=== PATIENT | male | born 1965 | race American Indian/Alaskan Native ===

== ENCOUNTER 2017-05-07 16:50 | Inpatient (IN) | payer SELFPAY ==
[2017-05-07] MEDS ORDERED: HEPARIN 10,000 UNITS/10 ML ONE (17:06)
[2017-05-07] MEDS ORDERED: HEPARIN/ 0.45% NACL-25,000 UNIT/500 ML 25,000 UNIT/500 ML BAG ONE (17:06)
[2017-05-07] MEDS ORDERED: NACL 0.9% 1000 ML 1,000 ML IV ONE (17:08)
[2017-05-07] MEDS ORDERED: BABY ASPIRIN PO ONE (17:08)
[2017-05-07] MEDS ORDERED: HEPARIN IV ONE (17:08)
[2017-05-07] MEDS ORDERED: MORPHINE IV ONE ×2 (17:11→17:21)
--- NOTE | 2017-05-07 17:19 | Emergency Department Report ---
ED General Adult HPI - General Chief complaint: Chest Pain Stated complaint: CHEST PAIN Time Seen by Provider: 05/07/17 17:08 Source: patient, family, RN notes reviewed Mode of arrival: Ambulatory Limitations: No Limitations - History of Present Illness Initial comments: This is a 51-year-old male. He is previously unknown to me. The patient presents to the ER with chest pain. The chest pain is central and substernal. It is associated with nausea and diaphoresis. Upon arrival to the ER, the patient's initial EKG demonstrated T wave inversions in 1 and aVL, with nonspecific abnormalities in the inferior leads. The EKG was transmitted to the painting manager, Dr. Garzon. A repeat EKG was obtained shortly thereafter, demonstrating an inferior wall STEMI. The patient indicates he did not take cocaine prior to arrival, denies hematemesis and bright red blood per rectum, denies leg pain and leg swelling, as well as recent trips greater than 4 hours. The painting manager, Dr. Garzon accepted the patient to the [facility] for emergent STEMI revascularization. Aspirin, multiple doses of morphine, heparin were given. At the cardiology team's request, Plavix was held. The case was presents to the Hospital physician, Dr. Gunn, who accepted the patient to his service. The case was presented to the critical care physician, Dr. Hansen, who agreed with placement into the intensive care unit status post STEMI management., -: Gradual Location: chest Quality: aching Consistency: constant Improves with: none Worsens with: none Associated Symptoms: chest pain, diaphoresis, loss of appetite, malaise, weakness - Related Data Home Medications Medication Instructions Recorded Confirmed Last Taken Unobtainable 05/07/17 05/07/17 Unknown Allergies Allergy/AdvReac Type Severity Reaction Status Date / Time No Known Allergies Allergy Unverified 05/07/17 17:05 ED Review of Systems ROS: Stated complaint: CHEST PAIN Other details as noted in HPI Constitutional: diaphoresis, malaise, weakness. denies: fever Eyes: denies: vision change ENT: denies: epistaxis Respiratory: shortness of breath Cardiovascular: chest pain Gastrointestinal: denies: vomiting, hematemesis Genitourinary: as per HPI Musculoskeletal: denies: arthralgia, myalgia Skin: denies: lesions Neurological: weakness Psychiatric: anxiety ED Past Medical Hx - Past Medical History Previous Medical History?: No - Surgical History Past Surgical History?: No - Social History Smoking Status: Current Some Day Smoker Substance Use Type: Alcohol, Marijuana - Medications Home Medications: Home Medications Medication Instructions Recorded Confirmed Last Taken Type Unobtainable 05/07/17 05/07/17 Unknown History ED Physical Exam - General Limitations: No Limitations General appearance: alert, in distress - Head Head exam: Present: atraumatic, normocephalic - Eye Eye exam: Present: normal appearance - ENT ENT exam: Present: normal exam, normal orophraynx, mucous membranes moist, normal external ear exam - Neck Neck exam: Present: normal inspection, full ROM. Absent: tenderness, meningismus - Respiratory Respiratory exam: Present: normal lung sounds bilaterally. Absent: respiratory distress, wheezes, rales, rhonchi, stridor, chest wall tenderness - Cardiovascular Cardiovascular Exam: Present: normal rhythm, bradycardia, normal heart sounds. Absent: systolic murmur, diastolic murmur, rubs, gallop - GI/Abdominal GI/Abdominal exam: Present: soft, normal bowel sounds. Absent: distended, tenderness, guarding, rebound, rigid, pulsatile mass - Rectal Rectal exam: Present: deferred - Extremities Exam Extremities exam: Present: normal inspection, full ROM, normal capillary refill , other (2+ pulses are noted in 4 extremities). Absent: pedal edema, joint swelling, calf tenderness - Back Exam Back exam: Present: normal inspection, full ROM. Absent: tenderness, CVA tenderness (R), CVA tenderness (L), muscle spasm, paraspinal tenderness, vertebral tenderness - Neurological Exam Neurological exam: Present: alert, oriented X3, other (Extraocular movements intact. Tongue midline. No facial droop. Facial sensation intact to light touch in the V1, V2, V3 distribution bilaterally. 5 and 5 strength in 4 extremities.. Sensation is intact to light touch in 4 extremities.). Absent: motor sensory deficit - Psychiatric Psychiatric exam: Present: anxious - Skin Skin exam: Present: warm, dry, intact, normal color. Absent: rash ED Course Vital Signs 05/07/17 05/07/17 17:00 17:21 Temperature 98.3 F Pulse Rate 73 74 Respiratory 17 18 Rate Blood Pressure 132/92 Blood Pressure 138/90 150/100 [Right] O2 Sat by Pulse 98 100 Oximetry ED Medical Decision Making - Lab Data Result diagrams: 05/07/17 17:00 05/07/17 17:00 Vital Signs 05/07/17 05/07/17 17:00 17:21 Temperature 98.3 F Pulse Rate 73 74 Respiratory 17 18 Rate Blood Pressure 132/92 Blood Pressure 138/90 150/100 [Right] O2 Sat by Pulse 98 100 Oximetry Lab Results 05/07/17 05/07/17 05/07/17 Range/Units 17:00 17:00 17:10 WBC 5.9 (4.5-11.0) K/mm3 RBC 5.37 H (3.65-5.03) M/mm3 Hgb 13.3 (11.8-15.2) gm/dl Hct 41.3 (35.5-45.6) % MCV 77 L (84-94) fl MCH 25 L (28-32) pg MCHC 32 (32-34) % RDW 15.5 H (13.2-15.2) % Plt Count 218 (140-440) K/mm3 Add Manual Diff Complete Total Counted 100 Seg Neutrophils % Assembly Lead Person Seg Neuts % (Manual) 33.0 L (40.0-70.0) % Band Neutrophils % 0 % Lymphocytes % (Manual) 53.0 H (13.4-35.0) % Reactive Lymphs % (Man) 1.0 % Monocytes % (Manual) 7.0 (0.0-7.3) % Eosinophils % (Manual) 6.0 H (0.0-4.3) % Basophils % (Manual) 0 (0.0-1.8) % Metamyelocytes % 0 % Myelocytes % 0 % Promyelocytes % 0 % Blast Cells % 0 % Nucleated RBC % Not Reportable Seg Neutrophils # Man 1.9 (1.8-7.7) K/mm3 Band Neutrophils # 0.0 K/mm3 Lymphocytes # (Manual) 3.1 (1.2-5.4) K/mm3 Abs React Lymphs (Man) 0.1 K/mm3 Monocytes # (Manual) 0.4 (0.0-0.8) K/mm3 Eosinophils # (Manual) 0.4 (0.0-0.4) K/mm3 Basophils # (Manual) 0.0 (0.0-0.1) K/mm3 Metamyelocytes # 0.0 K/mm3 Myelocytes # 0.0 K/mm3 Promyelocytes # 0.0 K/mm3 Blast Cells # 0.0 K/mm3 WBC Morphology Not Reportable Hypersegmented Neuts Not Reportable Hyposegmented Neuts Not Reportable Hypogranular Neuts Not Reportable Smudge Cells Not Reportable Toxic Granulation Not Reportable Toxic Vacuolation Not Reportable Dohle Bodies Not Reportable Pelger-Huet Anomaly Not Reportable Michael Rods Not Reportable Platelet Estimate Consistent w auto Clumped Platelets Not Reportable Plt Clumps, EDTA Not Reportable Large Platelets Not Reportable Giant Platelets Not Reportable Platelet Satelliting Not Reportable Plt Morphology Comment Not Reportable RBC Morphology Normal Dimorphic RBCs Not Reportable Polychromasia Not Reportable Hypochromasia Not Reportable Poikilocytosis Not Reportable Anisocytosis Not Reportable Microcytosis Not Reportable Macrocytosis Not Reportable Spherocytes Not Reportable Pappenheimer Bodies Not Reportable Sickle Cells Not Reportable Target Cells Not Reportable Tear Drop Cells Not Reportable Ovalocytes Not Reportable Helmet Cells Not Reportable Garcia-Chamizal Bodies Not Reportable [place]wood Rings Not Reportable Evaristo Cells Not Reportable Bite Cells Not Reportable Crenated Cell Not Reportable Elliptocytes Not Reportable Acanthocytes (Spur) Not Reportable Rouleaux Not Reportable Hemoglobin C Crystals Not Reportable Schistocytes Not Reportable Malaria parasites Not Reportable Timur Bodies Not Reportable Hem Pathologist Commnt No Sodium 141 (137-145) mmol/L Potassium 3.5 L (3.6-5.0) mmol/L Chloride 101.4 (98-107) mmol/L Carbon Dioxide 25 (22-30) mmol/L Anion Gap 18 mmol/L BUN 12 (9-20) mg/dL Creatinine 0.9 (0.8-1.5) mg/dL Estimated GFR > 60 ml/min BUN/Creatinine Ratio 13.33 % Glucose 218 H (75-100) mg/dL Calcium 8.9 (8.4-10.2) mg/dL Total Creatine Kinase 102 (55-170) units/L CK-MB (CK-2) 2.4 (0.0-4.0) ng/mL CK-MB (CK-2) Rel Index 2.3 (0-4) Troponin T < 0.010 (0.00-0.029) ng/mL Blood Type B POSITIVE Antibody Screen TNR LUCÍA Antibody Screen Negative - EKG Data -: EKG Interpreted by Me Rate: bradycardia (her) - EKG Data When compared to previous EKG there are: previous EKG unavailable Interpretation: normal EKG 05/07/17 18:42 sinus 70 bpm, inferior wall stemi, normal intervals - Radiology Data Radiology results: image reviewed interpreted by me: x-ray the chest is portable, rotated, no acute disease Critical care attestation.: If time is entered above; I have spent that time in minutes in the direct care of this critically ill patient, excluding procedure time. ED Disposition Clinical Impression: ST elevation myocardial infarction (STEMI) of inferior wall Disposition: [id number] OP ADMIT IP TO THIS HOSP Is pt being admited?: Yes Condition: Good
[2017-05-07 17:20] LABS: Hematocrit 41.3 % (35.5-45.6); Hemoglobin 13.3 gm/dl (11.8-15.2); Mean Corpuscular HGB Conc 32 % (32-34); Mean Corpuscular Volume 77 fl (84-94); Platelet Count 218 K/mm3 (140-440); Red Blood Count 5.37 M/mm3 (3.65-5.03); Red Cell Distribution Width 15.5 % (13.2-15.2); White Blood Count 5.9 K/mm3 (4.5-11.0)
[2017-05-07] MEDS ORDERED: CALAN ONE (17:28)
[2017-05-07] MEDS ORDERED: HEPARIN/NS 5000 UNIT/500ML(CATH LAB) 1,000 ML IR ONE (17:28)
[2017-05-07] MEDS ORDERED: XYLOCAINE 2% INFILTRATI ONE (17:28)
[2017-05-07] MEDS ORDERED: NITROGLYCERIN SYRINGE 3 ML ONE (17:29)
[2017-05-07] MEDS ORDERED: SUBLIMAZE ONE (17:29)
[2017-05-07 17:34] LABS: Mean Corpuscular Hemoglobin 25 pg (28-32)
[2017-05-07 17:37] LABS: Creatine Kinase MB 2.4 ng/mL (0.0-4.0)
[2017-05-07 17:38] LABS: Anion Gap 18 mmol/L; BUN/Creatinine Ratio 13.33; Blood Urea Nitrogen 12 mg/dL (9-20); Calcium 8.9 mg/dL (8.4-10.2); Carbon Dioxide 25 mmol/L (22-30); Chloride 101.4 mmol/L (98-107); Creatine Kinase 102 units/L (55-170); Glucose 218 mg/dL (75-100); Potassium 3.5 mmol/L (3.6-5.0); Sodium 141 mmol/L (137-145)
[2017-05-07] MEDS: HEPARIN 10,000 UNITS/10 ML ONE ×2 (17:56→18:12)
[2017-05-07] MEDS ORDERED: HEPARIN/ 0.45% NACL-25,000 UNIT/500 ML 25,000 UNIT/500 ML BAG IV SCH (18:00)
[2017-05-07] MEDS ORDERED: ATROPINE 0.1% (CARDIAC) ONE (18:01)
[2017-05-07] MEDS ORDERED: VERSED ONE (18:03)
[2017-05-07] MEDS ORDERED: BENADRYL ONE (18:05)
[2017-05-07] MEDS ORDERED: PLAVIX ONE (18:10)
[2017-05-07] MEDS ORDERED: ALUM-MAG HYDROX-SIMETH 200-200-20MG/5ML ONE (18:10)
[2017-05-07 18:39] LABS: Basophils % (Manual) 0 % (0.0-1.8); Blastocytes % (Manual) 0 %
--- NOTE | 2017-05-07 18:39 | Consultation ---
History of Present Illness Consult date: 05/07/17 Consult reason: chest pain (STEMI of the inferior wall), other History of present illness: 51-year-old man with a history of hypertension and diabetes, who is visiting from [place]. He states that he is not on any medications or his hypertension and diabetes, and does not follow regularly with Drs. Co- morbidities include chronic tobacco use. Denies any prior cardiac history. He presented to the emergency room with a history of substernal chest pain. Initial EKG in the emergency room was largely benign with nonspecific ST and T- wave changes, but a follow-up EKG with recurrent chest pain was consistent with an acute inferior wall ST elevation myocardial infarction. Cardiac chemistry lab instructor was activated, he was taken emergently to the cardiac catheterization where was found complete occlusion of the proximal right coronary artery. Primary angioplasty was performed, with reestablishment of KAYLEEN-3 flow. A 3.0 x 18 mm drug-eluting stent was deployed with an excellent angiographic result of the treated site. In addition to the primary lesion, the patient had non-obstructive, diffuse three-vessel atherosclerosis. He is admitted to the CCU for post LA stabilization. Past History Past Medical History: diabetes, hypertension, other (tobacco abuse) Social history: smoking Medications and Allergies Allergies Allergy/AdvReac Type Severity Reaction Status Date / Time No Known Allergies Allergy Unverified 05/07/17 17:05 Home Medications Medication Instructions Recorded Confirmed Last Taken Type Unobtainable 05/07/17 05/07/17 Unknown History Active Meds: Active Medications Heparin Sodium/Sodium Chloride (Heparin/ 0.45% Nacl-25,000 Unit/500 Ml) 25,000 unit in 500 mls @ 20 mls/hr IV TITRATE MARIA ISABEL; 1,000 UNITS/HR PRN Reason: Protocol Last Admin: 05/07/17 17:07 Dose: 1,000 units/hr, 20 mls/hr Sodium Chloride (Nacl 0.9% 1000 Ml) 1,000 mls @ 42 mls/hr IV ONCE ONE Stop: 05/08/17 16:56 Last Admin: 05/07/17 17:11 Dose: 42 mls/hr Review of Systems Cardiovascular: chest pain, shortness of breath, no orthopnea, no palpitations, no rapid/irregular heart beat, no edema, no syncope, no lightheadedness Physical Examination Vital Signs Temp Pulse Resp BP Pulse Ox 97.7 F 59 L 18 138/90 97 05/07/17 17:00 05/07/17 17:00 05/07/17 17:00 05/07/17 17:00 05/07/17 17:00 General appearance: no acute distress HEENT: Positive: PERRL Neck: Positive: neck supple Cardiac: Positive: Reg Rate and Rhythm Lungs: Positive: Decreased Breath Sounds Neuro: Positive: Grossly Intact Abdomen: Positive: Soft Male genitourinary: Positive: deferred Skin: Positive: Clear Extremities: Absent: edema Results 05/07/17 17:00 05/07/17 17:00 Cardiac Enzymes 05/07/17 Range/Units 17:00 CK-MB (CK-2) 2.4 (0.0-4.0) ng/mL CBC 05/07/17 Range/Units 17:00 WBC 5.9 (4.5-11.0) K/mm3 RBC 5.37 H (3.65-5.03) M/mm3 Hgb 13.3 (11.8-15.2) gm/dl Hct 41.3 (35.5-45.6) % Plt Count 218 (140-440) K/mm3 Comprehensive Metabolic Panel 05/07/17 Range/Units 17:00 Sodium 141 (137-145) mmol/L Potassium 3.5 L (3.6-5.0) mmol/L Chloride 101.4 (98-107) mmol/L Carbon Dioxide 25 (22-30) mmol/L BUN 12 (9-20) mg/dL Creatinine 0.9 (0.8-1.5) mg/dL Glucose 218 H (75-100) mg/dL Calcium 8.9 (8.4-10.2) mg/dL EKG interpretations - Telemetry EKG Rhythm: Sinus Rhythm (acute inferior wall ST elevation myocardial infarction ) Assessment and Plan - Patient Problems (1) ST elevation myocardial infarction (STEMI) of inferior wall Current Visit: Yes Status: Acute Plan to address problem: Patient presented with acute STEMI of the inferior wall. He has undergone emergency cardiac catheterization with successful primary angioplasty of completely occluded proximal right coronary artery. Successful drug eluting stent placement with rest outpatient of KAYLEEN-3 flow.
[2017-05-07 18:40] LABS: Diff Status Complete; Platelet Estimate Consistent w Auto; RBC Morphology Normal
[2017-05-07] MEDS ORDERED: ALUM-MAG HYDROX-SIMETH 200-200-20MG/5ML PO PRN (18:42)
[2017-05-07] MEDS ORDERED: DULCOLAX PR PRN (18:42)
[2017-05-07] MEDS ORDERED: MILK OF MAGNESIA PO PRN (18:42)
--- NOTE | 2017-05-07 18:42 | Admit Criteria Form ---
Admission Criteria Documentation: MYOCARDIAL INFARCTION Clinical Indications for Admission to Inpatient Care (Place 'X' for any and all applicable criteria): Admission is indicated for 1 or more of the following (1)(2)(3)(4): [X ]I. Acute RI [ ]II. Contraindications and/or Inappropriate clinical situations for Observational Care in patients with Myocardial Infarction, when ANY ONE of the following is required: [ ]a) Patient with High risk of cardiac embolism (e.g, patients with previous cardiac embolism, LVEF < 40%, age >75 and patients with prosthetic valve) 18 [ ]b) Patient with Moderate risk including DM patient, CAD and patient aged 65-75 18 [ ]c) Patient with any change in cardiac biomarker especially troponin should be managed as high risk in an inpatient setting 19 [ ]d) Physician judgement irrespective of ECG and other diagnostic findings 20 [ ]III.General contraindications and/or Inappropriate clinical situations for Observational Care in patients with Myocardial Infarction, when ANY ONE of the following is required: [ ]a) Prediction of prolongation of LOS based on ANY ONE of the following may be considered as a contraindication for observational care 2, 3, 4, 5, 6, 7, 8, 9, 10, 11 [ ]i) Age > 65 yrs. [ ]ii) Patient arriving by ambulance [ ]iii) Patient with high acuity [ ]iv) Patient requiring vital sign monitoring [ ]v) Patient on IV medication [ ]b) Systolic blood pressures greater than or equal to 180mmHg 3,12 [ ]c) Patient with altered mental status including delirium and other alteration of consciousness, (3) [ ]d) Patient whose discharge disposition will be to a detention home or rehabilitation home should not be managed in Emergency Department Observation Unit. CMS rule requires 3 days hospital stay before such placement. 3,13 [ ]e) Patient with failure to thrive due to broad array of etiologies 3 ,16,17 [ ]f) Inability to ambulate 3,14 Extended stay beyond goal length of stay may be needed for (1)(18)(20)(24)(25): [ ]a) Hemodynamic instability, persisting symptoms after intensive medical management, or recurring severe, prolonged symptoms [ ]b) Intravascular procedural complications such as acute vessel closure, stent thrombosis, stent malposition, or vessel dissection (26)(27)(28) [ ]c) Extravascular procedural complications such as retroperitoneal hematoma , pericardial effusion, or cardiac tamponade [ ]d) Entry site complications causing bleeding, hematoma or distal ischemia and requiring ongoing monitoring, surgical repair or surgical thrombectomy. Dangerous arrhythmia [ ]e) Complicated percutaneous coronary intervention (e.g., unsuccessful percutaneous coronary intervention or percutaneous coronary intervention of non- [place] band vessel) [ ]f) Urgent or emergent surgery for complications of RI (e.g., ventricular rupture, valvular insufficiency) [ ]g) Surgical revascularization via coronary artery bypass graft [ ]h) Heart failure (e.g., pulmonary edema) [ ]i) Unstable pulmonary comorbidities, including COPD or pneumonia (31) [ ]j) Acute renal failure The original [employer] content created by [employer] has been revised. The portions of the content which have been revised are identified through the use of italic text or in bold, and [employer] has neither reviewed nor approved the modified material. All other unmodified content is copyright [email or web address] Please see references footnoted in the original [facility] edition 2016 Admission Criteria Met: Yes
--- NOTE | 2017-05-07 18:46 | History and Physical Report ---
History of Present Illness Chief complaint: chest pain History of present illness: 51 YO Male with DM, HTN, Nicotine Dependence presents to ED for evaluation. Pt states that he has been experiencing chest pain for the past 1 day with worsening symptoms over the past 3 hours. Pain is 4/6/10, substernal, nonradiating, not worsened with exertion or relieved with rest. Pain is associated with nausea and diaphoresis. Upon arrival to the ER, the patient's initial EKG demonstrated STEMI, Pt taken urgently to laboratory phlebotomist as per cardiology team and subsequently admitted to ICU. Past History Past Medical History: diabetes, hypertension, other (tobacco abuse) Past Surgical History: No surgical history, Other (reviewed) Social history: single, smoking. denies: alcohol abuse, prescription drug abuse , IV drug use Family history: diabetes, hypertension Medications and Allergies Allergies Allergy/AdvReac Type Severity Reaction Status Date / Time No Known Allergies Allergy Unverified 05/07/17 17:05 Home Medications Medication Instructions Recorded Confirmed Last Taken Type Unobtainable 05/07/17 05/07/17 Unknown History Active Meds: Active Medications Aspirin (Ecotrin) 325 mg PO QDAY [facility] Atorvastatin Calcium (Lipitor) 20 mg PO QHS [facility] Clopidogrel Bisulfate (Plavix) 75 mg PO QDAY [facility] Heparin Sodium/Sodium Chloride (Heparin/ 0.45% Nacl-25,000 Unit/500 Ml) 25,000 unit in 500 mls @ 20 mls/hr IV TITRATE MARIA ISABEL; 1,000 UNITS/HR PRN Reason: Protocol Last Admin: 05/07/17 17:07 Dose: 1,000 units/hr, 20 mls/hr Sodium Chloride (Nacl 0.9% 1000 Ml) 1,000 mls @ 42 mls/hr IV ONCE ONE Stop: 05/08/17 16:56 Last Admin: 05/07/17 17:11 Dose: 42 mls/hr Sodium Chloride (Nacl 0.9% 1000 Ml) 1,000 mls @ 100 mls/hr IV DIRECT [facility] Stop: 05/08/17 06:59 Lisinopril (Zestril) 2.5 mg PO QDAY [facility] Metoprolol Tartrate (Lopressor) 50 mg PO BID [facility] Nitroglycerin (Nitro Dur) 0.4 mg TD DAILY@0600 [facility] Review of Systems All systems: negative Cardiovascular: chest pain Exam - Constitutional Vitals: Temp Pulse Resp BP Pulse Ox 98.3 F 74 18 150/100 100 05/07/17 17:00 05/07/17 17:21 05/07/17 17:21 05/07/17 17:21 05/07/17 17:21 General appearance: Present: mild distress - EENT Eyes: Present: PERRL ENT: hearing intact, clear oral mucosa - Neck Neck: Present: supple, normal ROM - Respiratory Respiratory effort: normal Respiratory: bilateral: CTA - Cardiovascular Heart Sounds: Present: S1 & S2. Absent: rub, click - Extremities Extremities: pulses symmetrical, No edema Peripheral Pulses: within normal limits - Abdominal General gastrointestinal: Present: soft, non-tender, non-distended, normal bowel sounds Male genitourinary: Present: normal - Integumentary Integumentary: Present: clear, warm, dry - Musculoskeletal Musculoskeletal: gait normal, strength equal bilaterally - Psychiatric Psychiatric: appropriate mood/affect, intact judgment & insight - Neurologic Neurologic: CNII-XII intact, moves all extremities Results - Labs CBC & Chem 7: 05/07/17 17:00 05/07/17 17:00 Labs: Abnormal lab results 05/07/17 05/07/17 Range/Units 17:00 17:00 RBC 5.37 H (3.65-5.03) M/mm3 MCV 77 L (84-94) fl MCH 25 L (28-32) pg RDW 15.5 H (13.2-15.2) % Seg Neuts % (Manual) 33.0 L (40.0-70.0) % Lymphocytes % (Manual) 53.0 H (13.4-35.0) % Eosinophils % (Manual) 6.0 H (0.0-4.3) % Potassium 3.5 L (3.6-5.0) mmol/L Glucose 218 H (75-100) mg/dL Assessment and Plan - Patient Problems (1) ST elevation myocardial infarction (STEMI) of inferior wall Current Visit: Yes Status: Acute Plan to address problem: Cardiology team consulted: telemetry, supportive care, The high probability of a clinically significant, sudden or life threatening deterioration of the [cardiac, pulmonary, renal] system(s) required my full and direct attention, intervention and personal management. The aggregate critical care time was [65] minutes. This time is in addition to time spent performing reported procedures but includes the following: [x] Data Review and interpretation [x] Patient assessment and monitoring of vital signs [x] Documentation [x] Medication orders and management (2) HTN (hypertension) Current Visit: Yes Status: Acute Qualifiers: Hypertension type: H Plan to address problem: monitor bp q shfit, resume home medication, as per cardiology team recommendation (3) Diabetes Current Visit: Yes Status: Acute Qualifiers: Diabetes mellitus type: D Diabetes mellitus complication status: D Diabetes mellitus complication detail: D Diabetic retinopathy severity: D Proliferative retinopathy type: P Diabetes mellitus macular edema: D Diabetes mellitus skilled nursing insulin use: D Laterality: L Chronic kidney disease stage: C Plan to address problem: ADA diet, insulin, accu check (4) Nicotine dependence Current Visit: Yes Status: Acute Qualifiers: Nicotine product type: N Substance use status: S Plan to address problem: supportive care, no nicotine patch at this time, supportive care. (5) DVT prophylaxis Current Visit: Yes Status: Acute
[2017-05-07 18:47] LABS: INR 1.06 (0.87-1.13)
[2017-05-07 18:48] LABS: Partial Thromboplastin Time 27.3 Sec. (24.2-36.6)
--- NOTE | 2017-05-07 18:55 | Operative Report ---
Operative Report Operative Report: Cardiac catheterization and coronary angioplasty report Date of procedure 05/07/2017 Procedures performed: Left heart catheterization and coronary angiography Coronary angioplasty and stent implantation Patient's a 51-year-old man who presented to the emergency room with chest pain and EKG consistent with an acute inferior wall ST elevation myocardial infarction. Emergency cardiac catheterization was recommended. Procedure: Patient was prepped and draped in a sterile fashion under emergency protocol. Right femoral artery was entered using the Seldinger technique followed by placement of the 6 Wolof sheath. Left coronary angiography was performed using a #4 left Kris catheter. We then exchanged for a #4 right Kris guiding catheter, which was used for right coronary angiography. The angiograms were reviewed. Coronary angiography: Left main coronary artery was free of significant disease. Left anterior descending artery and its diagonal branches contain diffuse mild to moderate atherosclerosis. The circumflex artery and its obtuse marginal branches contain diffuse moderate atherosclerosis. The right coronary artery was dominant. This vessel was completely occluded in its proximal segment. This was the infarct related lesion. Coronary angioplasty: A 0.014 inch company pilot 50 guidewire was then introduced, successfully penetrated the completely occluded vessel. Following my placement, balloon angioplasty was performed using a 3.0 mm balloon catheter. Following this, we reestablished KAYLEEN-3 flow. The 3 flow revealed a large, dominant right coronary system. There was a significant, ulcerated residual lesion with intracoronary thrombus, which prompted deployment of a 3.0 x 18 mm drug-eluting stent, covering the entire lesionaL segment. Following stenting, there was an excellent angiographic result of the primary site, 0 residual stenosis and KAYLEEN 3 flow was maintained on the vessel. We noted that similar to the left coronary vessels, there was diffuse mild to moderate atherosclerosis of the rest of the right coronary system. Specifically, there was a 40-50% stenosis of the midsegment, adjacent to the acute margin. This secondary nonobstructive lesion was not treated. The procedure was well treated by the patient and her no complications. Catheter was removed, sheath removed and hemostasis achieved using an Angio- Seal device. He was returned to the post procedure unit in stable condition. Conclusion: Acute ST elevation myocardial infarction of the inferior wall. Emergency left heart catheterization. 100% occlusion of the proximal right coronary artery. Successful primary angioplasty and stenting of the right coronary artery, restoring KAYLEEN-3 flow, with an excellent angiographic result of the primary site. Diffuse three-vessel coronary atherosclerosis, recommend aggressive risk factor modification including smoking cessation.
[2017-05-07] MEDS ORDERED: NACL 0.9% 1000 ML 1,000 ML IV SCH (19:00)
[2017-05-07] MEDS ORDERED: MORPHINE IV PRN ×2 (21:06→21:13)
[2017-05-07 21:08] LABS: Creatine Kinase MB 73.3 ng/mL (0.0-4.0)
[2017-05-07] MEDS: LOPRESSOR PO SCH (21:58)
[2017-05-07] MEDS: PERCOCET 5/325 PO PRN (22:04)
[2017-05-07] MEDS: NITRO DUR TD SCH (23:30)
[2017-05-07 23:50] LABS: Creatine Kinase MB 86.2 ng/mL (0.0-4.0)
[2017-05-08] MEDS: ZOFRAN IV PRN ×3 (01:07→18:49)
[2017-05-08 04:45] LABS: Basophils % (Auto) 0.3 % (0.0-1.8); Eosinophils % (Auto) 0.3 % (0.0-4.3); Hematocrit 40.1 % (35.5-45.6); Mean Corpuscular HGB Conc 33 % (32-34); Mean Corpuscular Volume 76 fl (84-94); Platelet Count 183 K/mm3 (140-440); Red Blood Count 5.28 M/mm3 (3.65-5.03); Red Cell Distribution Width 15.9 % (13.2-15.2); White Blood Count 6.2 K/mm3 (4.5-11.0)
[2017-05-08 04:46] LABS: Mean Corpuscular Hemoglobin 25 pg (28-32)
[2017-05-08 04:59] LABS: Creatine Kinase MB 87.6 ng/mL (0.0-4.0)
[2017-05-08 05:02] LABS: Anion Gap 18 mmol/L; BUN/Creatinine Ratio 14.28; Blood Urea Nitrogen 10 mg/dL (9-20); Calcium 8.7 mg/dL (8.4-10.2); Carbon Dioxide 24 mmol/L (22-30); Chloride 102.8 mmol/L (98-107); Creatine Kinase 1476 units/L (55-170); Glucose 208 mg/dL (75-100); Sodium 141 mmol/L (137-145)
[2017-05-08] MEDS ORDERED: NITRO DUR TD SCH (06:00)
--- NOTE | 2017-05-08 07:10 | XRay Report ---
AP CHEST: HISTORY: chest pain AP view of the chest demonstrates a normal mediastinal and cardiac contour with clear lungs and normal bony and soft tissue structures. IMPRESSION: Unremarkable AP chest.
[2017-05-08] MEDS: NITRO DUR TD SCH (07:40)
[2017-05-08] MEDS: ECOTRIN PO SCH (09:39)
[2017-05-08] MEDS: PLAVIX PO SCH (09:39)
[2017-05-08] MEDS: ZESTRIL PO SCH (09:40)
[2017-05-08] MEDS: LOPRESSOR PO SCH ×3 (09:42→22:17)
--- NOTE | 2017-05-08 10:48 | Progress Note ---
Assessment and Plan Acute STEMI s/p PCI of the proximal RCA Diabetes Hypertension Recommendations: Echocardiogram for LVEF assessment. Continue medical management for CAD including DAPT, statin and beta gabrielle therapy. Subjective Date of service: 05/08/17 Interval history: No events overnight. Patient reports his chest pain has improved. Objective Vital Signs Temp Pulse Resp BP Pulse Ox 05/08/17 09:42 54 L 147/98 05/08/17 09:40 54 L 147/98 05/08/17 08:00 98.4 F 05/08/17 07:40 60 120/90 05/08/17 07:31 58 L 10 L 162/105 98 05/08/17 07:21 59 L 13 127/97 100 05/08/17 07:11 58 L 13 136/92 99 05/08/17 07:00 55 L 13 136/92 99 05/08/17 06:51 69 14 135/95 99 05/08/17 06:41 56 L 13 129/90 100 05/08/17 06:30 57 L 10 L 135/89 99 05/08/17 06:21 52 L 12 165/110 100 05/08/17 06:11 61 14 160/91 99 05/08/17 06:00 58 L 13 129/90 98 05/08/17 05:51 59 L 12 160/91 99 05/08/17 05:41 57 L 14 159/98 98 05/08/17 05:30 59 L 16 159/98 99 05/08/17 05:21 64 16 147/101 100 05/08/17 05:11 67 15 145/94 100 05/08/17 05:01 57 L 15 145/94 97 05/08/17 04:51 58 L 14 142/87 99 05/08/17 04:41 56 L 11 L 124/80 99 05/08/17 04:30 60 16 124/80 100 05/08/17 04:21 62 15 146/90 97 05/08/17 04:11 58 L 15 140/91 99 05/08/17 04:00 59 L 15 140/91 99 05/08/17 03:51 53 L 15 144/99 99 05/08/17 03:41 60 12 144/99 98 05/08/17 03:30 98.8 F 53 L 15 144/99 98 05/08/17 03:21 58 L 15 131/95 100 05/08/17 03:11 56 L 15 145/90 98 05/08/17 03:01 62 16 145/90 97 05/08/17 02:51 57 L 14 143/92 100 05/08/17 02:41 59 L 14 138/90 100 05/08/17 02:30 52 L 13 138/90 100 05/08/17 02:21 54 L 13 138/93 100 05/08/17 02:11 14 118/82 05/08/17 02:01 70 9 L 118/97 98 05/08/17 01:51 57 L 14 130/88 100 05/08/17 01:41 53 L 14 119/86 100 05/08/17 01:30 51 L 16 119/86 98 05/08/17 01:21 57 L 14 118/82 100 05/08/17 01:11 55 L 14 114/76 100 05/08/17 01:01 56 L 12 114/76 98 05/08/17 00:59 15 100 05/08/17 00:51 55 L 14 119/81 100 05/08/17 00:41 63 18 133/88 100 05/08/17 00:30 53 L 24 140/95 99 05/08/17 00:21 62 14 136/96 100 05/08/17 00:11 64 15 128/86 100 05/08/17 00:00 98.5 F 65 15 128/86 100 05/07/17 23:51 69 16 132/93 100 05/07/17 23:48 98 05/07/17 23:41 69 15 140/94 100 05/07/17 23:30 68 11 L 140/94 05/07/17 23:21 74 19 139/77 100 05/07/17 23:11 66 17 129/84 100 05/07/17 23:00 67 17 129/84 100 05/07/17 22:51 74 17 139/86 100 05/07/17 22:41 80 13 135/97 100 05/07/17 22:30 74 11 L 135/97 99 05/07/17 22:21 77 13 131/92 100 05/07/17 22:11 75 17 137/94 100 05/07/17 22:00 68 12 137/94 98 05/07/17 21:58 74 145/99 07/18/17 21:51 76 13 130/81 100 05/07/17 21:41 68 13 130/81 100 05/07/17 21:31 82 15 130/81 99 05/07/17 21:21 77 17 130/81 100 05/07/17 21:11 74 14 133/88 100 05/07/17 21:00 80 17 133/88 100 05/07/17 20:56 97.8 F 05/07/17 20:51 83 12 144/93 100 05/07/17 20:41 84 12 130/95 100 05/07/17 20:30 80 16 130/95 99 05/07/17 20:22 77 10 L 142/102 100 05/07/17 20:21 82 13 142/102 100 05/07/17 20:17 83 20 142/102 100 05/07/17 20:11 78 18 147/101 100 05/07/17 20:00 94 H 11 L 147/101 05/07/17 19:51 82 17 144/92 100 05/07/17 19:47 97.8 F 05/07/17 19:41 88 11 L 134/97 98 05/07/17 19:39 82 18 100 05/07/17 19:27 15 100 - Physical Examination General: No Apparent Distress HEENT: Positive: PERRL Cardiac: Positive: Reg Rate and Rhythm Extremities: Absent: edema - Labs and Meds Cardiac Enzymes 05/07/17 05/07/17 05/08/17 Range/Units 20:15 22:51 03:46 CK-MB (CK-2) 73.3 H 86.2 H 87.6 H (0.0-4.0) ng/mL Lipids 05/07/17 Range/Units 20:15 Triglycerides 84 (2-149) mg/dL Cholesterol 214 H (50-199) mg/dL HDL Cholesterol 46 (40-59) mg/dL Cholesterol/HDL Ratio 4.65 % CBC 05/08/17 Range/Units 03:46 WBC 6.2 (4.5-11.0) K/mm3 RBC 5.28 H (3.65-5.03) M/mm3 Hgb 13.0 (11.8-15.2) gm/dl Hct 40.1 (35.5-45.6) % Plt Count 183 (140-440) K/mm3 Lymph # 0.9 L (1.2-5.4) K/mm3 [place] # 0.5 (0.0-0.8) K/mm3 Eos # 0.0 (0.0-0.4) K/mm3 Baso # 0.0 (0.0-0.1) K/mm3 Comprehensive Metabolic Panel 05/08/17 Range/Units 03:46 Sodium 141 (137-145) mmol/L Potassium 4.0 (3.6-5.0) mmol/L Chloride 102.8 (98-107) mmol/L Carbon Dioxide 24 (22-30) mmol/L BUN 10 (9-20) mg/dL Creatinine 0.7 L (0.8-1.5) mg/dL Glucose 208 H (75-100) mg/dL Calcium 8.7 (8.4-10.2) mg/dL
--- NOTE | 2017-05-08 11:55 | Progress Note ---
Assessment and Plan Assessment and plan: 51 YO Male with DM, HTN, Nicotine Dependence presents with chest pain found to have STEMI (1) ST elevation myocardial infarction (STEMI) of inferior wall -s/p PCI to RCA with SAVANAH after STEMI -cardiology input appreciated "Complaining of atypical chest pain, ECG reviewed - no ischemic findings this morning Patient has a long standing history of LLE pain and is on chronic pain meds including naproxen and percocet Suspect narcotic withdrawal and seeking behaviour Follow-up echocardiogram" (2) HTN (hypertension) continue BP meds (3) Diabetes ADA diet, insulin, accu check (4) Nicotine dependence supportive care, no nicotine patch at this time, supportive care. (5) Opioid Dependence continue pain meds, limit dose of narcotics DVT prophylaxis Current Visit: Yes Status: Acute The high probability of a clinically significant, sudden or life threatening deterioration of the [cardiac, pulmonary, renal] system(s) required my full and direct attention, intervention and personal management. The aggregate critical care time was [65] minutes. This time is in addition to time spent performing reported procedures but includes the following: [x] Data Review and interpretation [x] Patient assessment and monitoring of vital signs [x] Documentation [x] Medication orders and management History Interval history: he had some atypical chest pain earlier today, it is now resolved Hospitalist Physical - Constitutional Vitals: Temp Pulse Resp BP Pulse Ox 98.4 F 58 L 16 145/95 100 05/08/17 08:00 05/08/17 10:30 05/08/17 10:30 05/08/17 10:30 05/08/17 10:30 General appearance: Present: no acute distress - EENT Eyes: Present: PERRL, EOM intact ENT: hearing intact, clear oral mucosa, dentition normal - Neck Neck: Present: supple, normal ROM - Respiratory Respiratory effort: normal Respiratory: bilateral: CTA - Cardiovascular Rhythm: regular Heart Sounds: Present: S1 & S2 - Extremities Extremities: no ischemia, No edema Peripheral Pulses: within normal limits - Abdominal General gastrointestinal: soft, non-tender, non-distended, normal bowel sounds - Integumentary Integumentary: Present: clear, warm, dry - Psychiatric Psychiatric: appropriate mood/affect, intact judgment & insight - Neurologic Neurologic: CNII-XII intact, no focal deficits, moves all extremities Results - Labs CBC & Chem 7: 05/08/17 03:46 05/08/17 03:46 Labs: Laboratory Last Values WBC 6.2 K/mm3 (4.5-11.0) 05/08/17 03:46 RBC 5.28 M/mm3 (3.65-5.03) H 05/08/17 03:46 Hgb 13.0 gm/dl (11.8-15.2) 05/08/17 03:46 Hct 40.1 % (35.5-45.6) 05/08/17 03:46 MCV 76 fl (84-94) L 05/08/17 03:46 MCH 25 pg (28-32) L 05/08/17 03:46 MCHC 33 % (32-34) 05/08/17 03:46 RDW 15.9 % (13.2-15.2) H 05/08/17 03:46 Plt Count 183 K/mm3 (140-440) 05/08/17 03:46 Lymph % (Auto) 15.1 % (13.4-35.0) 05/08/17 03:46 [place] % (Auto) 7.5 % (0.0-7.3) H 05/08/17 03:46 Eos % (Auto) 0.3 % (0.0-4.3) 05/08/17 03:46 Baso % (Auto) 0.3 % (0.0-1.8) 05/08/17 03:46 Lymph # 0.9 K/mm3 (1.2-5.4) L 05/08/17 03:46 [place] # 0.5 K/mm3 (0.0-0.8) 05/08/17 03:46 Eos # 0.0 K/mm3 (0.0-0.4) 05/08/17 03:46 Baso # 0.0 K/mm3 (0.0-0.1) 05/08/17 03:46 Add Manual Diff Complete 05/07/17 17:00 Total Counted 100 05/07/17 17:00 Seg Neutrophils % 76.8 % (40.0-70.0) H 05/08/17 03:46 Seg Neuts % (Manual) 33.0 % (40.0-70.0) L 05/07/17 17:00 Band Neutrophils % 0 % 05/07/17 17:00 Lymphocytes % (Manual) 53.0 % (13.4-35.0) H 05/07/17 17:00 Reactive Lymphs % (Man) 1.0 % 05/07/17 17:00 Monocytes % (Manual) 7.0 % (0.0-7.3) 05/07/17 17:00 Eosinophils % (Manual) 6.0 % (0.0-4.3) H 05/07/17 17:00 Basophils % (Manual) 0 % (0.0-1.8) 05/07/17 17:00 Metamyelocytes % 0 % 05/07/17 17:00 Myelocytes % 0 % 05/07/17 17:00 Promyelocytes % 0 % 05/07/17 17:00 Blast Cells % 0 % 05/07/17 17:00 Nucleated RBC % Not Reportable 05/07/17 17:00 Seg Neutrophils # 4.8 K/mm3 (1.8-7.7) 05/08/17 03:46 Seg Neutrophils # Man 1.9 K/mm3 (1.8-7.7) 05/07/17 17:00 Band Neutrophils # 0.0 K/mm3 05/07/17 17:00 Lymphocytes # (Manual) 3.1 K/mm3 (1.2-5.4) 05/07/17 17:00 Abs React Lymphs (Man) 0.1 K/mm3 05/07/17 17:00 Monocytes # (Manual) 0.4 K/mm3 (0.0-0.8) 05/07/17 17:00 Eosinophils # (Manual) 0.4 K/mm3 (0.0-0.4) 05/07/17 17:00 Basophils # (Manual) 0.0 K/mm3 (0.0-0.1) 05/07/17 17:00 Metamyelocytes # 0.0 K/mm3 05/07/17 17:00 Myelocytes # 0.0 K/mm3 05/07/17 17:00 Promyelocytes # 0.0 K/mm3 05/07/17 17:00 Blast Cells # 0.0 K/mm3 05/07/17 17:00 WBC Morphology Not Reportable 05/07/17 17:00 Hypersegmented Neuts Not Reportable 05/07/17 17:00 Hyposegmented Neuts Not Reportable 05/07/17 17:00 Hypogranular Neuts Not Reportable 05/07/17 17:00 Smudge Cells Not Reportable 05/07/17 17:00 Toxic Granulation Not Reportable 05/07/17 17:00 Toxic Vacuolation Not Reportable 05/07/17 17:00 Dohle Bodies Not Reportable 05/07/17 17:00 Pelger-Huet Anomaly Not Reportable 05/07/17 17:00 Michael Rods Not Reportable 05/07/17 17:00 Platelet Estimate Consistent w auto 05/07/17 17:00 Clumped Platelets Not Reportable 05/07/17 17:00 Plt Clumps, EDTA Not Reportable 05/07/17 17:00 Large Platelets Not Reportable 05/07/17 17:00 Giant Platelets Not Reportable 05/07/17 17:00 Platelet Satelliting Not Reportable 05/07/17 17:00 Plt Morphology Comment Not Reportable 05/07/17 17:00 RBC Morphology Normal 05/07/17 17:00 Dimorphic RBCs Not Reportable 05/07/17 17:00 Polychromasia Not Reportable 05/07/17 17:00 Hypochromasia Not Reportable 05/07/17 17:00 Poikilocytosis Not Reportable 05/07/17 17:00 Anisocytosis Not Reportable 05/07/17 17:00 Microcytosis Not Reportable 05/07/17 17:00 Macrocytosis Not Reportable 05/07/17 17:00 Spherocytes Not Reportable 05/07/17 17:00 Pappenheimer Bodies Not Reportable 05/07/17 17:00 Sickle Cells Not Reportable 05/07/17 17:00 Target Cells Not Reportable 05/07/17 17:00 Tear Drop Cells Not Reportable 05/07/17 17:00 Ovalocytes Not Reportable 05/07/17 17:00 Helmet Cells Not Reportable 05/07/17 17:00 Garcia-[place] Bodies Not Reportable 05/07/17 17:00 Baltic Rings Not Reportable 05/07/17 17:00 Evaristo Cells Not Reportable 05/07/17 17:00 Bite Cells Not Reportable 05/07/17 17:00 Crenated Cell Not Reportable 05/07/17 17:00 Elliptocytes Not Reportable 05/07/17 17:00 Acanthocytes (Spur) Not Reportable 05/07/17 17:00 Rouleaux Not Reportable 05/07/17 17:00 Hemoglobin C Crystals Not Reportable 05/07/17 17:00 Schistocytes Not Reportable 05/07/17 17:00 Malaria parasites Not Reportable 05/07/17 17:00 Timur Bodies Not Reportable 05/07/17 17:00 Hem Pathologist Commnt No 05/07/17 17:00 PT 13.7 Sec. (12.2-14.9) 05/07/17 17:00 INR 1.06 (0.87-1.13) 05/07/17 17:00 APTT 27.3 Sec. (24.2-36.6) 05/07/17 17:00 Sodium 141 mmol/L (137-145) 05/08/17 03:46 Potassium 4.0 mmol/L (3.6-5.0) 05/08/17 03:46 Chloride 102.8 mmol/L (98-107) 05/08/17 03:46 Carbon Dioxide 24 mmol/L (22-30) 05/08/17 03:46 Anion Gap 18 mmol/L 05/08/17 03:46 BUN 10 mg/dL (9-20) 05/08/17 03:46 Creatinine 0.7 mg/dL (0.8-1.5) L 05/08/17 03:46 Estimated GFR > 60 ml/min 05/08/17 03:46 BUN/Creatinine Ratio 14.28 % 05/08/17 03:46 Glucose 208 mg/dL (75-100) H 05/08/17 03:46 Calcium 8.7 mg/dL (8.4-10.2) 05/08/17 03:46 Total Creatine Kinase 1476 units/L (55-170) H 05/08/17 03:46 CK-MB (CK-2) 87.6 ng/mL (0.0-4.0) H 05/08/17 03:46 CK-MB (CK-2) Rel Index 5.9 (0-4) H 05/08/17 03:46 Troponin T 4.810 ng/mL (0.00-0.029) H* 05/08/17 03:46 Triglycerides 84 mg/dL (2-149) 05/07/17 20:15 Cholesterol 214 mg/dL (50-199) H 05/07/17 20:15 LDL Cholesterol Direct 152 mg/dL (50-130) H 05/07/17 20:15 HDL Cholesterol 46 mg/dL (40-59) 05/07/17 20:15 Cholesterol/HDL Ratio 4.65 % 05/07/17 20:15 Blood Type B POSITIVE 05/07/17 17:10 Antibody Screen TNR 05/07/17 17:10 LUCÍA Antibody Screen Negative 05/07/17 17:10
[2017-05-08] MEDS: PERCOCET 5/325 PO PRN ×2 (13:33→18:49)
[2017-05-08] MEDS ORDERED: PROVENTIL IH PRN (18:35)
[2017-05-09] MEDS: NITRO DUR TD SCH (06:03)
[2017-05-09 06:42] LABS: Urine Drugs of Abuse Note Disclamer
--- NOTE | 2017-05-09 10:02 | Discharge Summary ---
Providers - Providers Date of Admission: 05/07/17 18:42 Attending physician: AARON MYERS MD Primary care physician: [employer] Hospitalization Condition: Good Hospital course: 51 YO Male with DM, HTN, Nicotine Dependence presents with chest pain found to have STEMI. He had not been following with Dr. He went on to have cardiac cath , and PCI to RCA with SAVANAH. He was placed on oral medication for management of CAD. His meds were optimized for HTN. He was noted to be diabetic, he was not aware of this diagnosis as he has not seen a doctor in many years. He was also counseled on tobacco abuse, was advised to quit he was told about the real risk of cardiac arrest, worsening CAD stroke heart attack and cancer. He verbalized understanding. He does have chronic pain in his lower extremity for which she' s opioid dependence he was counseled on reducing opioid use and trying to wean off U was given a limited dose of narcotic pain medications. Discharge diagnoses STEMI Hypertension Type 2 diabetes, [id number] Nicotine dependence Opioid dependence Chronic pain syndrome Disposition: DC-01 TO HOME OR SELFCARE Time spent for discharge: 32 minutes Core Measure Documentation - Palliative Care Palliative Care/ Comfort Measures: Not Applicable - Core Measures Any of the following diagnoses?: acute IA - Acute IA Discharge Requirements Aspirin at discharge: Yes ELLIE/ARB for LVSD if EF <40%: Not Applicable Beta gabrielle at discharge: Yes Statin for LDL = or >100 mg/dl on DC: Yes Exam - Constitutional Vitals: Temp Pulse Resp BP Pulse Ox 98.3 F 62 18 145/93 97 05/09/17 07:45 05/09/17 07:45 05/09/17 07:45 05/09/17 07:45 05/09/17 07:45 General appearance: Present: no acute distress, well-nourished - EENT Eyes: Present: PERRL ENT: hearing intact, clear oral mucosa - Neck Neck: Present: supple, normal ROM - Respiratory Respiratory effort: normal Respiratory: bilateral: CTA - Cardiovascular Heart Sounds: Present: S1 & S2. Absent: rub, click - Extremities Extremities: pulses symmetrical, No edema Peripheral Pulses: within normal limits - Abdominal General gastrointestinal: Present: soft, non-tender, non-distended, normal bowel sounds Male genitourinary: Present: normal - Integumentary Integumentary: Present: clear, warm, dry - Musculoskeletal Musculoskeletal: gait normal, strength equal bilaterally - Psychiatric Psychiatric: appropriate mood/affect, intact judgment & insight - Neurologic Neurologic: CNII-XII intact, moves all extremities Plan Follow up with: ALFREDO LOPEZ MD [Staff Physician] - 7 Days PRIMARY CARE, [Primary Care Provider] - 7 Days Forms: [facility] PCI D/C Instructions Prescriptions: AtorvaSTATin [Lipitor] 40 mg PO QHS #30 tablet Aspirin EC [Aspirin Enteric Coated TAB] 81 mg PO QDAY #30 tablet. Clopidogrel [Plavix] 75 mg PO QDAY #30 tablet Lisinopril [Zestril TAB] 2.5 mg PO QDAY #30 tablet metFORMIN [Glucophage] 500 mg PO BID #60 tablet Metoprolol [Lopressor TAB] 25 mg PO BID #60 tablet oxyCODONE /ACETAMINOPHEN [Percocet 5/325 mg] 1 tab PO Q6H PRN #14 tablet PRN Reason: Pain, Moderate (4-6)
[2017-05-09] MEDS: LOPRESSOR PO SCH (10:10)
[2017-05-09] MEDS: ZESTRIL PO SCH (10:11)
[2017-05-09] MEDS: PLAVIX PO SCH (10:11)
[2017-05-09] MEDS: PERCOCET 5/325 PO PRN ×2 (10:12→16:36)
[2017-05-09] MEDS: ECOTRIN PO SCH (10:12)
[2017-05-09 10:13] VITALS: BP 143/75
[2017-05-09] MEDS ORDERED: D50W (25GM) IV PRN (13:28)
--- NOTE | 2017-05-09 14:12 | Progress Note ---
Assessment and Plan Acute STEMI s/p PCI of the proximal RCA Diabetes mellitus Hypertension EF 50-55% on echocardiogram. Recommendations: Risk factor modifications. Continue medical management for CAD including DAPT, statin and beta gabrielle therapy. Subjective Date of service: 05/09/17 Interval history: Patient denies chest pain and shortness of breath. Objective Vital Signs Temp Pulse Pulse Pulse Resp BP BP 05/09/17 10:12 20 05/09/17 10:11 62 143/75 05/09/17 10:10 62 143/75 05/09/17 07:45 98.3 F 62 62 18 145/93 05/09/17 06:03 63 136/94 05/09/17 04:42 98.2 F 63 63 18 137/85 05/09/17 00:00 98.5 F 60 60 18 135/80 05/08/17 22:17 68 136/94 05/08/17 21:17 57 L 05/08/17 20:59 98.7 F 61 61 18 120/79 05/08/17 18:33 05/08/17 16:57 98.2 F 62 20 135/78 05/08/17 16:00 97.6 F 80 18 154/84 05/08/17 15:40 63 13 136/94 05/08/17 15:30 64 14 125/86 05/08/17 15:20 64 11 L 125/86 05/08/17 15:10 60 15 127/90 05/08/17 15:00 58 L 11 L 127/90 05/08/17 14:50 72 17 125/94 05/08/17 14:40 56 L 11 L 125/86 05/08/17 14:30 54 L 16 125/86 05/08/17 14:21 73 16 134/92 05/08/17 14:11 65 11 L 133/86 Pulse Ox 05/09/17 10:12 05/09/17 10:11 05/09/17 10:10 05/09/17 07:45 97 05/09/17 06:03 05/09/17 04:42 97 05/09/17 00:00 98 05/08/17 22:17 05/08/17 21:17 05/08/17 20:59 92 05/08/17 18:33 98 05/08/17 16:57 98 05/08/17 16:00 97 05/08/17 15:40 99 05/08/17 15:30 92 05/08/17 15:20 99 05/08/17 15:10 99 05/08/17 15:00 99 05/08/17 14:50 100 05/08/17 14:40 100 05/08/17 14:30 98 05/08/17 14:21 100 05/08/17 14:11 99 - Physical Examination General: No Apparent Distress HEENT: Positive: PERRL Neck: Positive: neck supple Cardiac: Positive: Reg Rate and Rhythm Lungs: Positive: Decreased Breath Sounds Neuro: Positive: Grossly Intact Extremities: Absent: edema
[2017-05-09] MEDS ORDERED: NOVOLOG SUB-Q SCH (16:30)
[2017-05-09] MEDS ORDERED: LOVENOX SUB-Q SCH (22:00)
== END 2017-05-09 18:15 | disposition home or self-care (01) | DRG 247 ==
LOC: ED 16:50 → CATH 17:32 → CC1 18:42 → 4A 05-08 16:15 → UNDODISIN 05-09 16:36
PROVIDERS: ADMIT Internal Medicine Cardiovascular Disease; ATTEND Internal Medicine
PROC: B2111ZZ Fluoroscopy of Multiple Coronary Arteries using Low Osmolar Contrast (ICD-10-PCS; principal; 2017-05-07)
PROC: 027034Z Dilation of Coronary Artery, One Artery with Drug-eluting Intraluminal Device, Percutaneous Approach (ICD-10-PCS; 2017-05-07)
PROC: 4A023N7 Measurement of Cardiac Sampling and Pressure, Left Heart, Percutaneous Approach (ICD-10-PCS; 2017-05-07)
DX: I21.19 ST elevation (STEMI) myocardial infarction involving other coronary artery of inferior wall (principal); F11.20 Opioid dependence, uncomplicated; I25.10 Atherosclerotic heart disease of native coronary artery without angina pectoris; E11.9 Type 2 diabetes mellitus without complications; I10 Essential (primary) hypertension; Z83.3 Family history of diabetes mellitus; Z82.49 Family history of ischemic heart disease and other diseases of the circulatory system; F17.210 Nicotine dependence, cigarettes, uncomplicated; F41.9 Anxiety disorder, unspecified; Z72.89 Other problems related to lifestyle; F12.90 Cannabis use, unspecified, uncomplicated; G89.4 Chronic pain syndrome
CPT/HCPCS: 36415; 71010; 80048; 80061; 80307; 82550; 82553; 84484; 85007; 85025; 85347; 85610; 85730; 86850; 86900; 86901; 92941; 93005; 93010; 93306; 93454; 94760; 99285; 99406; A9270-GY; C1725; C1760; C1769; C1874; C1887; C1894; C9606; J0461; J1200; J1644; J2250; J2270; J2405; J3010; J7030; Q9967